=== PATIENT | male | born 1965 | race Caucasian/White ===

== ENCOUNTER 2019-09-12 01:19 | Emergency (ER) | payer OTHER ==
[~2019-09-12] VITALS: Ht 193 cm; Wt 113.6 kg
[2019-09-12] MEDS ORDERED: RANI150T7 PO (01:47)
[2019-09-12] MEDS ORDERED: LISI-661 PO (01:47)
[2019-09-12] MEDS ORDERED: EFAV1TAB PO (01:47)
[2019-09-12] MEDS ORDERED: HYDR-4061 PO (01:47)
[2019-09-12] MEDS ORDERED: EMTR1TAB12 PO (01:52)
[2019-09-12] MEDS ORDERED: BACITRACIN 0.9 GM PACKET OINTMENT TP ONE (02:00)
[2019-09-12 02:15] VITALS: BP 128/88
[2019-09-14 03:34] LABS: HIV 1-2 SCREEN 4TH GEN W/RFLX Reactive (Non Reactive); HIV INTERPRETATION HIV-1 Positive; HIV-1 ANTIBODY(MULTISPOT) Positive (Negative); HIV-2 ANTIBODY(MULTISPOT) Negative (Negative)
== END 2019-09-12 02:32 | disposition home or self-care (01) ==
LOC: EMS 01:19
DX: S40.811A Abrasion of right upper arm, initial encounter (principal); S40.812A Abrasion of left upper arm, initial encounter; I10 Essential (primary) hypertension; Z77.21 Contact with and (suspected) exposure to potentially hazardous body fluids; Z88.5 Allergy status to narcotic agent; Z79.899 Other long term (current) drug therapy; Y08.89XA Assault by other specified means, initial encounter; Y93.89 Activity, other specified; Y92.89 Other specified places as the place of occurrence of the external cause; Y99.8 Other external cause status
CPT/HCPCS: 80074; 86701; 86702; 87389

== ENCOUNTER → 2020-09-30 | Outpatient (CLI) | payer OTHER ==
[~2020-09-30] MED LIST: EMTR1TAB12 PO; HYDR-4061 PO; LISI-893 PO; RANI150T7 PO
[2020-10-01 07:06] LABS: RUBELLA AB IGG-REFLAB 1.92 index (Immune >0.99)
[2020-10-01 08:06] LABS: RUBEOLA (MEASLES) IGG 74.8 AU/mL (Immune >16.4)
== END | disposition home or self-care (01) ==
LOC: MSR 14:01
PROVIDERS: ATTEND Internal Medicine
DX: Z02.1 Encounter for pre-employment examination (principal); R76.11 Nonspecific reaction to tuberculin skin test without active tuberculosis
CPT/HCPCS: 86706; 86735; 86762; 86765; 86787; 36415-L1; 36415-TC; 71045-TC

== ENCOUNTER → 2021-06-28 | Outpatient (CLI) | payer BC, OTHER ==
[~2021-06-28] VITALS: Ht 193 cm; Wt 133.0 kg
[2021-06-28 10:11] VITALS: BP 127/71
== END | disposition home or self-care (01) ==
LOC: SRCNTR 09:52
PROVIDERS: ATTEND Internal Medicine
DX: I10 Essential (primary) hypertension (principal); K21.9 Gastro-esophageal reflux disease without esophagitis
CPT/HCPCS: G0463; Z7500

== ENCOUNTER 2022-01-17 11:00 | Emergency (ER) | payer OTHER ==
[~2022-01-17] VITALS: Ht 193 cm; Wt 118.2 kg
[2022-01-17 11:10] VITALS: BP 129/73
[2022-01-17] MEDS ORDERED: TRAM50TA4 PO (11:15)
[2022-01-18] MEDS ORDERED: COLC0.6T73 PO (11:29)
== END 2022-01-17 13:05 | disposition home or self-care (01) ==
LOC: EMS 11:01
DX: S90.32XA Contusion of left foot, initial encounter (principal); I10 Essential (primary) hypertension; Z88.5 Allergy status to narcotic agent; Z88.8 Allergy status to other drugs, medicaments and biological substances; Z79.899 Other long term (current) drug therapy; W20.8XXA Other cause of strike by thrown, projected or falling object, initial encounter; Y93.89 Activity, other specified; Y92.89 Other specified places as the place of occurrence of the external cause; Y99.8 Other external cause status
CPT/HCPCS: 99283

== ENCOUNTER 2022-04-20 07:22 | Inpatient (IN) | payer OTHER ==
[~2022-04-20] VITALS: Ht 188 cm; Wt 113.8 kg
[2022-04-20] VITALS (7 sets, daily range): BP systolic 90–138; BP diastolic 63–90
[~2022-04-20 07:22] MED LIST changes: +COLC0.6T73 PO; +TRAM-559 PO
[2022-04-20] MEDS ORDERED: ACETAMINOPHEN 1000 MG/ISO-OSM 100 ML IV ONE (07:45)
[2022-04-20] MEDS ORDERED: SODIUM CHLORIDE 0.9% 1,000 ML IV ONE ×3 (07:45→10:30)
[2022-04-20 08:05] LABS: BASOPHILS % (AUTO) 0.3 % (0.0-2.0); EOSINOPHILS % (AUTO) 0.1 % (1.0-6.0); HEMATOCRIT 41.2 % (41-53); HEMOGLOBIN 14.1 g/dL (13.5-17.5); LYMPHOCYTES # (AUTO) 0.9 K/uL (1.0-4.8); LYMPHOCYTES % (AUTO) 8.8 % (22.0-44.0); MEAN CORPUSCULAR HEMOGLOBIN 29.7 pg (26.0-34.0); MEAN CORPUSCULAR HGB CONC 34.3 G/dL (31.0-37.0); MEAN CORPUSCULAR VOLUME 87 fL (80-100); MONOCYTES # (AUTO) 0.5 K/uL (0.1-1.0); MONOCYTES % (AUTO) 5.1 % (2.0-9.0); NEUTROPHILS # (AUTO) 9.2 K/uL (1.8-7.7); PLATELET COUNT (AUTO) 220 K/uL (150-450); RED BLOOD CELL COUNT(AUTO) 4.76 MIL/uL (4.50-5.90); RED CELL DISTRIBUTION WIDTH 13.6 % (11.5-14.5)
[2022-04-20 08:14] LABS: NEUTROPHILS % (AUTO) 85.7 % (40.0-70.0)
[2022-04-20] MEDS ORDERED: CefTRIAXone 1 GM/DEXTROSE 50 ML IV ONE (08:15)
[2022-04-20] MEDS ORDERED: AZITHROMYCIN 500 MG/NS 250 ML IV ONE (08:15)
[2022-04-20 08:18] LABS: CALCIUM, TOTAL 9.1 mg/dL (8.8-10.5); CREATININE 2.1 mg/dL (0.60-1.30); POTASSIUM 3.8 mmol/L (3.5-5.1)
[2022-04-20 08:22] LABS: PROTHROMBIN TIME 10.9 SEC (9.4-11.6)
[2022-04-20 08:43] LABS: ALBUMIN 3.7 g/dL (3.4-5.0); BILIRUBIN,TOTAL 0.6 mg/dL (0.1-1.0); MAGNESIUM 1.9 mg/dL (1.80-2.40); PHOSPHORUS 1.6 mg/dL (2.5-4.9); TOTAL PROTEIN, SERUM 8.2 g/dL (6.4-8.2)
[2022-04-20 08:51] LABS: COVID AG,FIA SOURCE NASOPHARYNGEAL
[2022-04-20] MEDS ORDERED: POTASSIUM PHOS,M-BASIC-D-BASIC 30 MMOL in DEXTROSE 5%-WATER 250 ML IV ONE (09:00)
[2022-04-20 09:14] LABS: INFLUENZA TYPE A NEGATIVE FOR TYPE A (NEGATIVE); INFLUENZA TYPE B NEGATIVE FOR TYPE B (NEGATIVE)
[2022-04-20] MEDS ORDERED: ONDANSETRON HCL 4 MG/2 ML VIAL IVP PRN ×2 (09:30→10:45)
[2022-04-20] MEDS ORDERED: ACETAMINOPHEN 325 MG TABLET PO PRN (09:30)
[2022-04-20] MEDS ORDERED: 0.9% SODIUM CHLORIDE 10 ML SYRINGE IVP PRN ×2 (09:30→10:45)
[2022-04-20] MEDS ORDERED: ALBUTEROL SULFATE 2.5 MG/0.5 ML NEB SOLUTION NEB PRN (10:45)
[2022-04-20] MEDS ORDERED: HydrALAZINE HCL 25 MG TABLET PO PRN (10:45)
[2022-04-20] MEDS ORDERED: BISACODYL 10 MG RECTAL RECTAL SUPPOSITORY PR PRN (10:45)
[2022-04-20] MEDS ORDERED: IPRATROPIUM BROMIDE 0.5 MG/2.5 ML NEB SOLUTION NEB PRN (10:45)
[2022-04-20] MEDS ORDERED: DOCUSATE SODIUM 100 MG CAPSULE PO PRN (10:45)
[2022-04-20] MEDS: DOXYCYCLINE HYCLATE 100 MG in DEXTROSE 5%-WATER 100 ML IV SCH ×2 (11:28→23:20)
[2022-04-20 11:33] LABS: CHOL/HDL RATIO 4.2 (4.2-7.3); THYROID STIMULATING HORMONE 0.88 uIU/mL (0.36-3.74)
[2022-04-20] MEDS: TraMADol HCL 50 MG TABLET PO PRN (15:14)
[2022-04-20 15:24] LABS: APPEARANCE,URINE CLEAR (CLEAR); BILIRUBIN,URINE NEGATIVE (NEGATIVE); GLUCOSE, URINE (UA) NEGATIVE (NEGATIVE); KETONES,URINE NEGATIVE (NEGATIVE); LEUKOCYTE ESTERASE ,URINE NEGATIVE (NEGATIVE); NITRATE,URINE NEGATIVE (NEGATIVE); OCCULT BLOOD,URINE TRACE (NEGATIVE); PH,URINE 5.5 (5.0-8.0); PROTEIN,URINE TRACE mg/dL (NEGATIVE); SPECIFIC GRAVITIY, URINE 1.027 (1.003-1.030); UROBILINOGEN,URINE <=1.0 mg/dL (<=1.0)
[2022-04-20 15:49] LABS: BACTERIA,URINE None Seen /HPF (None Seen); RBC,URINE 0-2 /HPF (0-2); SQUAMOUS EPITHELIAL CELL,UR None Seen /LPF (None Seen); WBC,URINE 0-2 /HPF (0-5)
[2022-04-20 16:00] LABS: AMPHET/METH SCREEN,URINE NEGATIVE (NEGATIVE); BARBITURATE SCREEN, URINE NEGATIVE (NEGATIVE); BENZODIAZEPINES SCREEN,URINE NEGATIVE (NEGATIVE); CANNABINOID SCREEN,URINE NEGATIVE (NEGATIVE); COCAINE SCREEN,URINE NEGATIVE (NEGATIVE); METHADONE SCREEN, URINE NEGATIVE (NEGATIVE); OPIATE SCREEN,URINE POSITIVE (NEGATIVE); PHENCYCLIDINE SCREEN,URINE NEGATIVE (NEGATIVE)
[2022-04-20 17:21] LABS: C-REACTIVE PROTEIN QUANT 6.96 mg/dL (0.00-0.30)
[2022-04-20] MEDS: BICTEGRAV/EMTRICIT/TENOFOV ALA 50-200-25 MG TABLET PO SCH (21:15)
[2022-04-20 23:32] LABS: C.DIFF GDH ANTIGEN, Stool Negative (Negative); C.DIFF TOXINS A&B, Stool Negative (Negative)
[2022-04-21] MEDS: LOPERAMIDE HCL 2 MG CAPSULE PO PRN ×2 (03:05→12:33)
[2022-04-21] MEDS: ACETAMINOPHEN 325 MG TABLET PO PRN ×3 (03:11→16:30)
[2022-04-21 04:00] VITALS: BP 118/81
[2022-04-21 08:31] VITALS: BP 114/65
[2022-04-21] MEDS ORDERED: BICTEGRAV/EMTRICIT/TENOFOV ALA 50-200-25 MG TABLET PO SCH (09:00)
[2022-04-21] MEDS: CefTRIAXone 1 GM/DEXTROSE 50 ML IV SCH (10:20)
[2022-04-21] MEDS: PANTOPRAZOLE SODIUM 40 MG DR TABLET PO SCH (10:20)
[2022-04-21 10:48] LABS: BASOPHILS % (AUTO) 0.2 % (0.0-2.0); EOSINOPHILS % (AUTO) 0.7 % (1.0-6.0); HEMATOCRIT 38.8 % (41-53); HEMOGLOBIN 13.2 g/dL (13.5-17.5); LYMPHOCYTES # (AUTO) 1.2 K/uL (1.0-4.8); LYMPHOCYTES % (AUTO) 20.9 % (22.0-44.0); MEAN CORPUSCULAR HEMOGLOBIN 29.6 pg (26.0-34.0); MEAN CORPUSCULAR HGB CONC 33.9 G/dL (31.0-37.0); MEAN CORPUSCULAR VOLUME 87 fL (80-100); MONOCYTES # (AUTO) 0.3 K/uL (0.1-1.0); NEUTROPHILS # (AUTO) 4.1 K/uL (1.8-7.7); NEUTROPHILS % (AUTO) 72.2 % (40.0-70.0); PLATELET COUNT (AUTO) 168 K/uL (150-450); RED BLOOD CELL COUNT(AUTO) 4.45 MIL/uL (4.50-5.90); RED CELL DISTRIBUTION WIDTH 13.7 % (11.5-14.5)
[2022-04-21 11:26] LABS: BILIRUBIN,TOTAL 0.4 mg/dL (0.1-1.0); C-REACTIVE PROTEIN QUANT 18.77 mg/dL (0.00-0.30); CALCIUM, TOTAL 8.7 mg/dL (8.8-10.5); CREATININE 1.64 mg/dL (0.60-1.30); POTASSIUM 3.3 mmol/L (3.5-5.1); TOTAL PROTEIN, SERUM 7.2 g/dL (6.4-8.2)
[2022-04-21 12:00] VITALS: BP 116/66
[2022-04-21] MEDS: DOXYCYCLINE HYCLATE 100 MG in DEXTROSE 5%-WATER 100 ML IV SCH (12:33)
[2022-04-21] MEDS: SODIUM CHLORIDE 0.9% 1,000 ML IV SCH ×2 (12:45→22:49)
[2022-04-21] MEDS ORDERED: POTASSIUM CHLORIDE 20 MEQ ER TABLET PO ONE (13:00)
[2022-04-21] MEDS: LACTOBACILLUS ACIDOPHILUS/BULGARICUS TABLET PO SCH ×2 (16:29→20:07)
[2022-04-21] MEDS: AZITHROMYCIN 500 MG/NS 250 ML IV SCH (16:30)
[2022-04-21 18:32] VITALS: BP 112/74
[2022-04-21] MEDS: BICTEGRAV/EMTRICIT/TENOFOV ALA 50-200-25 MG TABLET PO SCH (20:07)
[2022-04-21 20:24] VITALS: BP 139/88
[2022-04-22 05:31] VITALS: BP 127/70
[2022-04-22 06:21] LABS: BASOPHILS % (AUTO) 0.3 % (0.0-2.0); EOSINOPHILS % (AUTO) 1.6 % (1.0-6.0); HEMATOCRIT 37.1 % (41-53); HEMOGLOBIN 12.9 g/dL (13.5-17.5); LYMPHOCYTES # (AUTO) 1.8 K/uL (1.0-4.8); LYMPHOCYTES % (AUTO) 33.7 % (22.0-44.0); MEAN CORPUSCULAR HEMOGLOBIN 29.8 pg (26.0-34.0); MEAN CORPUSCULAR HGB CONC 34.8 G/dL (31.0-37.0); MEAN CORPUSCULAR VOLUME 86 fL (80-100); MONOCYTES # (AUTO) 0.4 K/uL (0.1-1.0); MONOCYTES % (AUTO) 7.1 % (2.0-9.0); NEUTROPHILS % (AUTO) 57.3 % (40.0-70.0); PLATELET COUNT (AUTO) 195 K/uL (150-450); RED BLOOD CELL COUNT(AUTO) 4.33 MIL/uL (4.50-5.90); RED CELL DISTRIBUTION WIDTH 13.8 % (11.5-14.5)
[2022-04-22 06:38] LABS: ALBUMIN 2.9 g/dL (3.4-5.0); BILIRUBIN,TOTAL 0.4 mg/dL (0.1-1.0); C-REACTIVE PROTEIN QUANT 9.06 mg/dL (0.00-0.30); CALCIUM, TOTAL 8.9 mg/dL (8.8-10.5); CREATININE 1.48 mg/dL (0.60-1.30); POTASSIUM 3.7 mmol/L (3.5-5.1); TOTAL PROTEIN, SERUM 7.1 g/dL (6.4-8.2)
[2022-04-22 08:26] VITALS: BP 140/98
[2022-04-22] MEDS: LACTOBACILLUS ACIDOPHILUS/BULGARICUS TABLET PO SCH ×2 (08:32→20:08)
[2022-04-22] MEDS: PANTOPRAZOLE SODIUM 40 MG DR TABLET PO SCH (08:32)
[2022-04-22] MEDS: CefTRIAXone 1 GM/DEXTROSE 50 ML IV SCH (08:33)
[2022-04-22 11:18] VITALS: BP 128/100
[2022-04-22] MEDS: LISINOPRIL 5 MG TABLET PO SCH (12:52)
[2022-04-22] MEDS: SODIUM CHLORIDE 0.9% 1,000 ML IV SCH (13:11)
[2022-04-22] MEDS ORDERED: TEMAZEPAM 15 MG CAPSULE PO PRN (13:15)
[2022-04-22] MEDS: AZITHROMYCIN 500 MG/NS 250 ML IV SCH (14:08)
[2022-04-22 18:06] LABS: LEGIONELLA PNEUMO AG URINE Negative (Negative); S PNEUMO SOURCE Urine; STREP PNEUMONIAE AG URINE Negative (Negative)
[2022-04-22 19:47] VITALS: BP 145/85
[2022-04-22] MEDS: BICTEGRAV/EMTRICIT/TENOFOV ALA 50-200-25 MG TABLET PO SCH (20:08)
[2022-04-22] MEDS: TraMADol HCL 50 MG TABLET PO PRN (20:08)
[2022-04-23] MEDS: SODIUM CHLORIDE 0.9% 1,000 ML IV SCH ×2 (05:21→09:51)
[2022-04-23 06:50] LABS: BASOPHILS % (AUTO) 0.4 % (0.0-2.0); EOSINOPHILS % (AUTO) 2.7 % (1.0-6.0); HEMATOCRIT 38.1 % (41-53); HEMOGLOBIN 13.2 g/dL (13.5-17.5); LYMPHOCYTES # (AUTO) 2.2 K/uL (1.0-4.8); LYMPHOCYTES % (AUTO) 43.8 % (22.0-44.0); MEAN CORPUSCULAR HEMOGLOBIN 29.7 pg (26.0-34.0); MEAN CORPUSCULAR HGB CONC 34.7 G/dL (31.0-37.0); MEAN CORPUSCULAR VOLUME 86 fL (80-100); MONOCYTES # (AUTO) 0.3 K/uL (0.1-1.0); MONOCYTES % (AUTO) 5.7 % (2.0-9.0); NEUTROPHILS # (AUTO) 2.4 K/uL (1.8-7.7); NEUTROPHILS % (AUTO) 47.4 % (40.0-70.0); PLATELET COUNT (AUTO) 216 K/uL (150-450); RED BLOOD CELL COUNT(AUTO) 4.45 MIL/uL (4.50-5.90); RED CELL DISTRIBUTION WIDTH 13.6 % (11.5-14.5)
[2022-04-23 07:08] LABS: ALBUMIN 2.9 g/dL (3.4-5.0); BILIRUBIN,TOTAL 0.2 mg/dL (0.1-1.0); C-REACTIVE PROTEIN QUANT 3.57 mg/dL (0.00-0.30); CALCIUM, TOTAL 8.6 mg/dL (8.8-10.5); CREATININE 1.53 mg/dL (0.60-1.30); POTASSIUM 4.1 mmol/L (3.5-5.1)
[2022-04-23 08:06] VITALS: BP 141/102
[2022-04-23] MEDS ORDERED: AZITHROMYCIN 500 MG TABLET PO SCH (09:00)
[2022-04-23] MEDS: LISINOPRIL 5 MG TABLET PO SCH (09:46)
[2022-04-23] MEDS: PANTOPRAZOLE SODIUM 40 MG DR TABLET PO SCH (09:47)
[2022-04-23] MEDS: LACTOBACILLUS ACIDOPHILUS/BULGARICUS TABLET PO SCH (09:47)
[2022-04-23] MEDS: CefTRIAXone 1 GM/DEXTROSE 50 ML IV SCH (09:51)
[2022-04-23 11:27] VITALS: BP 150/91
[2022-04-23] MEDS: TraMADol HCL 50 MG TABLET PO PRN (13:19)
[2022-04-23] MEDS ORDERED: AZIT-104 PO ×2 (14:19→14:32)
[2022-04-23] MEDS ORDERED: BICT1TAB PO (14:19)
[2022-04-23] MEDS ORDERED: LISI-892 PO (14:21)
[2022-04-23] MEDS ORDERED: ACID1TAB8 PO (14:21)
== END 2022-04-23 15:00 | disposition home or self-care (01) | DRG 312 ==
LOC: EMS 07:26 → 5S 14:08
PROVIDERS: ADMIT Internal Medicine; ATTEND Internal Medicine
DX: R55 Syncope and collapse (principal); J18.9 Pneumonia, unspecified organism; E87.1 Hypo-osmolality and hyponatremia; N17.9 Acute kidney failure, unspecified; M62.82 Rhabdomyolysis; K52.9 Noninfective gastroenteritis and colitis, unspecified; I12.9 Hypertensive chronic kidney disease with stage 1 through stage 4 chronic kidney disease, or unspecified chronic kidney disease; N18.30 Chronic kidney disease, stage 3 unspecified; G43.909 Migraine, unspecified, not intractable, without status migrainosus; E86.1 Hypovolemia; Z21 Asymptomatic human immunodeficiency virus [HIV] infection status; E11.22 Type 2 diabetes mellitus with diabetic chronic kidney disease; Z20.822 Contact with and (suspected) exposure to COVID-19; R00.0 Tachycardia, unspecified; Z82.49 Family history of ischemic heart disease and other diseases of the circulatory system; Z86.16 Personal history of COVID-19; Z88.8 Allergy status to other drugs, medicaments and biological substances; Z88.5 Allergy status to narcotic agent; Z79.899 Other long term (current) drug therapy
CPT/HCPCS: 70450; 71045; 72125; 76770; 80053; 80061; 81001; 82550; 83036; 83605; 83690; 83735; 83880; 84100; 84145; 84439; 84443; 84484; 85025; 85610; 85730; 86140; 86738; 87040; 87045; 87324; 87449; 87804; 87899; 89055; 93005; 93306; 93880; 99285; J0131; J0456; J0696; J2405; J3490; J7030; J7060; Q9967; 36415-L1; 36415-TC

== ENCOUNTER 2025-03-24 14:33 | Emergency (ER) | payer OTHER ==
[~2025-03-24 14:33] MED LIST changes: +ACID1TAB8 PO; +AZIT-167 PO; +BICT1TAB PO; -COLC0.6T73 PO; +LISI-892 PO; -LISI-893 PO; -TRAM-559 PO; +TRAM50TA5 PO
[2025-03-24] MEDS: AZITHROMYCIN 500 MG TABLET PO ONE (14:54)
[2025-03-24] MEDS: LIDOCAINE/PF 1% 2 ML VIAL IM ONE (14:54)
[2025-03-24] MEDS: CefTRIAXone SODIUM 1 GM/VIAL IM ONE (14:54)
== END 2025-03-24 14:59 | disposition home or self-care (01) ==
LOC: EMS 14:33
DX: N34.2 Other urethritis (principal); I10 Essential (primary) hypertension; Z98.890 Other specified postprocedural states; Z79.891 Long term (current) use of opiate analgesic; Z79.899 Other long term (current) drug therapy; Z88.5 Allergy status to narcotic agent
CPT/HCPCS: 99283; 96372; J0456; J0696; J3490